=== PATIENT | male | born 1950 | race Caucasian/White ===

== ENCOUNTER 2019-04-25 09:20 | Day surgery (SDC) | payer MEDICARE, BC ==
[~2019-04-25] VITALS: Ht 185.4 cm; Wt 129.5 kg
[~2019-04-25 09:20] MED LIST: BAYER CHEWABLE81 MG PO; CENTRUM MEN'S1 EACH PO; COREG12.5 MG PO; DURICEF500 MG PO; FISH OIL 1,0001 CA1 PO; FLOMAX0.4 MG PO; GLIMEPIRIDE2 MG PO; GLUCOSAMINE HC500 MG PO; HCTZ25 MG PO; HYDROCODON-ACE1 EA10 PO; JANUMET 50-1,01 EAC1 PO; LEVEMIR IN100 UNITS/ SC; LIPITOR80 MG PO; LISINOPRIL20 MG PO; NORVASC5 MG PO; OSTEO BI-FLEX1 EAC1 PO; PROSCAR5 MG PO; VITAMIN B-1250 MCG; VITAMIN C500 M1 PO; VITAMIN D10000 UNI1 PO
[2019-04-25 09:50] LABS: HEMATOCRIT 38.3 % (42.0-54.0); MCH 29.7 pg (26.0-34.0); MCHC 33.9 g/dL (31.0-37.0); MCV 87.4 fL (80.0-100.0); MEAN PLATELET VOLUME 9.3 fL (7.4-10.4); RBC 4.38 10x6/uL (4.20-6.10); RDW 13.5 % (11.5-14.5); WBC 8.2 10x3/uL (4.8-10.8)
[2019-04-25 10:02] VITALS: BP 123/73; Ht 185.4 cm; Wt 129.5 kg
[2019-04-25 10:08] LABS: ANION GAP 12.6 mmol/L (8-16); CALCIUM 9.5 mg/dL (8.5-10.1); CREATININE - SERUM 1.1 mg/dL (0.6-1.3); POTASSIUM - SERUM 4.6 mmol/L (3.5-5.1)
--- NOTE | 2019-04-25 12:34 | NUR ---
1222 VSS. IV DC'D. CATHETER TIP INTACT. NO BLEEDING OR SWELLING AT SITE. BANDAID APPLIED.
--- NOTE | 2019-04-27 17:10 | OP ---
PATIENT NAME: KARYN BACK MEDICAL RECORD: [id number] :46 LOCATION:[facility] ADMISSION DATE: SURGEON: GUILLERMO MORAN DO DATE OF OPERATION: 04/25/2019 PROCEDURE: Colonoscopy with polypectomy. INDICATIONS FOR PROCEDURE: Screening colonoscopy with a personal history of polyps. The patient's last colonoscopy was 5 years ago or greater. SCOPE: Olympus video pediatric colonoscope. MEDICATIONS: Propofol 400 mg IV per anesthesia. WITHDRAWAL TIME: 18 minutes. ESTIMATED BLOOD LOSS: Minimal. COMPLICATIONS: None. FINDINGS: Informed consent was given. The patient was made comfortable with the above medication. After reaching an adequate level of sedation by slow IV push, the patient was placed on his left side. A digital rectal examination was performed and was normal. The endoscope was then advanced under direct visualization through the rectum to the cecum, confirmed by the presence of the appendiceal orifice and ileocecal valve. The endoscope was slowly withdrawn. Mucosa was carefully examined. The prep quality was good. There were 2 polyps visualized on today's examination. The first was a benign-appearing flat polyp located in the sigmoid colon. It measured approximately a centimeter. It was removed using EMR technique with injection of isotonic saline for a pillow followed by hot snare polypectomy. The second polyp was a benign appearing sessile polyp, which measured approximately 3-4 mm in diameter. It was removed using hot snare. It was located in the rectum. Retroflexion was also performed in the rectum with visualization of grade I internal hemorrhoids without bleeding. The endoscope was withdrawn from the patient. The patient tolerated the procedure well and there were no complications. IMPRESSION: 1. Two polyps as described above, removed using a combination of a hot snare and endoscopic mucosal resection technique. 2. Grade I internal hemorrhoids without bleeding. PLAN AND RECOMMENDATIONS: 1. Discharge home when recovery parameters are met. 2. Follow up biopsy specimen results. 3. High fiber diet. 4. Continue current medications. 5. Recall colonoscopy in 3-5 years pending pathology of polyps removed today. TRANSINT:[id number] Voice Confirmation ID: [id number] DOCUMENT ID: [id number] OPERATIVE REPORT [id number] KARYN BACK GUILLERMO MORAN DO at 0990 CC: [id number] DICTATION DATE: 04/25/19 9002 REFERRAL COORDINATOR: 04/25/199 [facility] 04/25/19 [facility] [address] [facility]
== END 2019-04-25 12:38 | disposition home or self-care (01) ==
LOC: D.OPS 09:20
PROVIDERS: Anesthesiology; ATTEND Internal Medicine Gastroenterology
DX: Z12.11 Encounter for screening for malignant neoplasm of colon (principal); Z86.010 Personal history of colon polyps; K63.5 Polyp of colon; K64.0 First degree hemorrhoids